=== PATIENT | female | born 1995 ===

== ENCOUNTER 2017-06-28 14:13 | Emergency (ER) | payer MEDICAID ==
[2017-06-28 14:18] VITALS: BMI 25.7
[2017-06-28 14:27] LABS: HEMATOCRIT 35.6 % (34.0-47.0); MEAN CORPUSCULAR HEMOGLOBIN 27.3 pg (27.0-31.0); MEAN CORPUSCULAR HGB CONC 32.9 g/dL (33.0-37.0); RED CELL DISTRIBUTION WIDTH 13.4 % (11.5-14.5); WHITE BLOOD COUNT 9.5 K/uL (4.8-10.8)
[2017-06-28 14:30] LABS: MEAN CELL VOLUME 83.1 fl (81.0-99.0)
[2017-06-28] MEDS ORDERED: Etomidate 20 mg/10ml Inj IV ONE (14:34)
[2017-06-28] MEDS ORDERED: Propofol 10 mg/ml 1,000 MG/100 ML VIAL ONE (14:35)
[2017-06-28 14:37] LABS: ALB/GLOB RATIO 1.1 (1.0-2.1); ALKALINE PHOSPHATASE 221 U/L (38-126); ALT/SGPT 60 U/L (9-52); AST/SGOT 46 U/L (14-36); BILIRUBIN,TOTAL 0.9 mg/dl (0.2-1.3); BLOOD UREA NITROGEN 8 mg/dl (7-17); CALCIUM 9.1 mg/dL (8.4-10.2); CARBON DIOXIDE 22 mmol/L (22-30); CHLORIDE 106 mmol/L (98-107); GFR AFRICAN-AMERICAN > 60; GLUCOSE,RANDOM 93 mg/dL (65-105); POTASSIUM 3.4 MMOL/L (3.6-5.0); SODIUM 135 mmol/l (132-148); TOTAL PROTEIN 7.2 G/DL (6.3-8.2)
--- NOTE | 2017-06-28 14:44 | CT ---
PROCEDURE: CT HEAD WITHOUT CONTRAST. HISTORY: Code stroke COMPARISON: None available. TECHNIQUE: Axial computed tomography images were obtained through the head/brain without intravenous contrast. Radiation dose: Total exam DLP = 803.5 mGy-cm. This CT exam was performed using one or more of the following dose reduction techniques: Automated exposure control, adjustment of the mA and/or kV according to patient size, and/or use of iterative reconstruction technique. FINDINGS: HEMORRHAGE: There is a small approximately 15.5 mm x 14.5 mm 15.3 mm rounded hyperdense focus on within the left parasagittal lower catherine and upper medulla most consistent with a hemorrhage. Possibility of underlying mass or vascular lesion (such as a small AVM or cavernoma) cannot be completely excluded. . This presumed hemorrhage exerts mild on mass effect and compresses the ventral surface of the 4th ventricle more so on the left side. No obstructive hydrocephalus. No other hemorrhages hemorrhages or masses are identified. . BRAIN: No obvious extra-axial masses or collections. VENTRICLES: No obstructive hydrocephalus. CALVARIUM: There are no acute calvarial fractures. PARANASAL SINUSES: Unremarkable as visualized. No significant inflammatory changes. MASTOID AIR CELLS: Unremarkable as visualized. No inflammatory changes. OTHER FINDINGS: Orbits and contents grossly unremarkable. IMPRESSION: There is a rounded hyperdense lesion within the left posterior catherine upper medulla that most likely represents a hemorrhage with surrounding mass effect and compression of the 4th ventricle. No evidence of obstructive hydrocephalus. See above discussion for additional details. These findings discussed with hospitalist Dr. Cardoso at approximately 2:34 p.m. with written down and read back verification.
--- NOTE | 2017-06-28 15:34 | PCM.RRTMUL ---
<LangstonTimmy - Last Filed: 06/28/17 16:32> LOCAL COMBINATION TRUCK DRIVER Nurse Assessment - Situation LOCAL COMBINATION TRUCK DRIVER Responder Arrival Time:: 14:10 Location:: LABOR AND DELIVERY Room Number:: 522 LOCAL COMBINATION TRUCK DRIVER Reason for Call: Possible Stroke, Change in Mental Status - IV IV Inserted during LOCAL COMBINATION TRUCK DRIVER?: Yes IV Fluids Initiated During LOCAL COMBINATION TRUCK DRIVER?: yes normal saline bolus New IV Insertion Tolerance:: Excellent - Respiratory Oxygen Delivery Method:: Mask - Diagnostic Test Ordered CT Scan:: Yes (CT HEAD W/O CONTRAST, CODE STROKE) - [place] Coma Scale Coma Scale Eye Opening:: No response Coma Scale Motor:: None Coma Scale Verbal:: No response Coma Scale Total:: 3 - Recommendations 5) LOCAL COMBINATION TRUCK DRIVER Level of Care Recommendations: EMERGENCY ROOM 6) Notifications: Consultations, Family or Designated Caregiver I.Reason for LOCAL COMBINATION TRUCK DRIVER - A) Acute Change in Patient: (Select all that apply): Acute change in mental status - B) Neurological Status (Select all that apply): Lethargic. absent: Alert, Responsive, Oriented, Verbal , Follows Commands - C) Respiratory Oxygen Delivery Method: Face Mask @% (100) - Head Head Exam: ATRAUMATIC, NORMAL INSPECTION, NORMOCEPHALIC - Eyes Eye Exam: absent: EOMI Additional Comments: fixed to right bilaterally, pupils equal - Respiratory Exam Respiratory Exam: Clear to Ausculation Bilateral, NORMAL BREATHING PATTERN - Cardiovascular Exam Cardiovascular Exam: REGULAR RHYTHM, RRR, +S1, +S2 - GI/Abdominal Exam Additional comments: GRAVID ABDOMEN - Neurological Exam Neurological Exam: absent: Alert, Awake, Oriented x3 Additional exam: unresponsive - Extremities Exam Extremities Exam: Normal Inspection Plan - B. Assessment of Findings&Treatment Plan LOCAL COMBINATION TRUCK DRIVER called due to change in mental status This is a 22 year old female with 34 weeks gestation that presented to hospital lob with due to left sided headache and visual loss. states at 10 AM after they woke up, they were on their way to the park and patient began to complain of left-sided headache and visual loss, so they brought her to nearest ED, where she was directed to L&D due to her . Patient unable to provide information as she was unresponsive at time of LOCAL COMBINATION TRUCK DRIVER. Family denies drug use, recent illness, medication use, inciting factors, trauma , or other contributing factors. ObGGyn hospitalist at bedside, monitoring within normal limits. Impression: 22 yo gravid female with signs/symptoms of CVA. Fetus stable at this time as per OBGYN. -CODE STROKE CALLED -CT HEAD W/O CONTRAST -STAT LABS -O2 VIA FACEMASK -BP, HR, O2 SAT STABLE AT THIS TIME -TRANSFER TO ED -Rushed to CT scan and then to ED <Veronica Cardoso - Last Filed: 06/28/17 16:51> Attending/Attestation - Attestation I have personally seen and examined this patient.: Yes I have fully participated in the care of the patient.: Yes I have reviewed all pertinent clinical information, including history, physical exam and plan: Yes Notes (Text): 06/28/17 16:45 22 YEAR OLD FEMALE [facility] SEEN AND EVALUATED DURING LOCAL COMBINATION TRUCK DRIVER CALLED FOR SLURRED SPEECH AND WORSENING AMS. SHE INITIALLY FELT A HEADACHE EARLY THIS MORNING, AND WHILE IN THE PARK, PATIENT DEVELOPED L EYE BLINDNESS AND WORSENING HEADACHE AND WEAKNESS. ACCOMPANIED BY AND MIL, SHE CAME TO THE [facility] AND WAS BROUGHT TO OBGYN ER. LOCAL COMBINATION TRUCK DRIVER WAS SUBSEQUENTLY CALLED. PATIENT UNABLE TO FOLLOW COMMANDS AND WAS BECOMING MORE AND MORE OBTUNDED. BP ABOUT 120/70s AND BECAME MORE HYPOTENSIVE. CODE STROKE CALLED, PT SENT FOR STAT CT HEAD. CT SHOWED BRAIN STEM BLEED, PT TRANSFERRED TO ER FOR FURTHER MANAGEMENT AND TREATMENT. IN ER, PATIENT INTUBATED, NEUROLOGY, NEUROSURGERY, OBGYN, MFM, ANESTHESIA ALL CONSULTED AND DISCUSSED. HEMORRHAGE IN WILL/MEDULLA. PT WAS SUBSEQUENTLY TRANSFERRED TO [facility].
--- NOTE | 2017-06-28 19:55 | OBHP ---
Datetime: 06/28/2017 15:25 IP Adm Impression: , intrauterine IP Chief Complaint Other: AMS EGA AdmitDate IP: 32.5 IP Chief Complaint: Other Datetime: 06/28/2017 15:14 Admit Comment, IP Provider: CC: AMS HPI: 22 YO 34wks IUP (per ) was send to [facility] from security. Pt is non-verbal, moaning. Hx is taken from and family. Per , pt had a headache this morning around 10AM and it worsened through the day. Around 13:30, headache was severe which prompted family to come to ED but o n the way pt noticed that the left side of her face had drooping and noted left sided weakness and sl urring of speech. Pt was shira to [facility], and was in security when pt became altered, dysphagic. Trans port brought pt to L_D and did not pass ER. Pt was seen in [facility], she was nonverbal and moaning. DRY WALL APPLICATOR was called, IV inserted, pt assessed by RR T team 14:10, DRY WALL APPLICATOR team took over and pt send to CT at 14:16. History later obtained from OBhx: primegrivid PMH: hypothyroid ? hx but per it resolved SurHx: denies FH: DM in mother and HTN father Allergies: NKDA Meds: PNV PE: VS: Pulse: 68, BP: 100/61, SpO2: 100 GEN: pt is not responsive to verbal stimuli, moaning in distress Cardio: S1S2 Resp: clear Abdomen: gravid, BS+ Ext: NT, no edema Sono ceph +FH; BPD measured 33w Assessment/Plan: IUP at 34w by pt's 's account; altered mental status ?seizure vs other anthony rological condition ?bleed Pt brought to [facility] and seen 14:08 DRY WALL APPLICATOR was called, DRY WALL APPLICATOR take over 14:10 PT was taken to CT 14:16 Subsequently pt taken to ER Pt is seen and discussed with Dr. Momo Vasquez, PGYI LATE ENTRY OB Hospitalist note: This pt was seen and examined by me. Agree with above note. [facility] Dr Veronica Cardoso and Harini Toth came...trransferred to CAT scan/ER Pelvic Type - PN: Not Done Extremities - PN: Abnormal Abdomen - PN: Normal Back - PN: Not Done Breast - PN: Not Done Lungs - PN: Normal Heart - PN: Normal Thyroid - PN: Not Done Neurologic - PN: Abnormal HEENT - PN: Abnormal General - PN: Abnormal Comments, ACOG Physical Exam: Late entry for exam at 14:10pm Accomplained by and relative. Pt unable to respond because she was just moaning Vital Signs Provider: Reviewed; Within Normal Limits NICHD Variability Prov Fetus A: Moderate 6-25bpm NICHD Accel Fetus A IP Provider: [id number] FHR Category Provider Fetus A: Category I NICHD Decel Fetus A IP Provider: None DTRs - PN: Not Done
--- NOTE | 2017-06-28 19:58 | OBHP ---
Datetime: 06/28/2017 15:25 Admit Comment, IP Provider: Pt was taken to CT 14:16. U/S record obtained from [facility], [facility] is 08/18/2017, [place] 32.5 wks IUP. Multiple attemps made to contact Dr. Galvan in [facility] and left messages at 14:30 and 15:00 ([phone] and [phone]). Pt was taken to ER and subsequently transfered to [place]. Management by ER and consultations with neurology, neurosurgeon and M specialists -- transferred to [facility] EGA AdmitDate IP: 32.5
[2017-06-28 21:57] VITALS: PULSE 66; RESP 17; O2SAT 100
== END 2017-06-28 14:16 | disposition short-term general hospital (02) ==
LOC: H.ER 14:13 → H.EROB2 14:13 → H.L&D 14:16 → H.ER 14:43 → H.ERHOLD 14:43 → UNDOFXERACCOM 14:44 → UNDOFXERSVC 14:44
DX: O26.93 Pregnancy related conditions, unspecified, third trimester (principal); R41.82 Altered mental status, unspecified; Z3A.34 34 weeks gestation of pregnancy

== ENCOUNTER 2017-06-28 14:47 | Emergency (ER) | payer MEDICAID ==
[2017-06-28 15:14] VITALS: TEMP 95.5; O2SAT 100
[2017-06-28 15:15] LABS: ABG ALLEN TEST YES; ABG MECHANICAL RATE 16; ARTERIAL BLOOD GAS HCO3 21.6 mmol/L (21-28); ARTERIAL BLOOD GAS MODE PRVC AC; ARTERIAL BLOOD GAS O2 CAPACITY 15.3 mL/dL (16-24); ARTERIAL BLOOD GAS O2 CONTENT 15.3 ML/dL (15-23); ARTERIAL BLOOD GAS PH 7.44 (7.35-7.45); ARTERIAL BLOOD GAS PO2 407 mm/Hg (80-100); ARTERIAL BLOOD HGB O2 SAT 96.4 % (95.0-98.0); CARBOXYHEMOGLOBIN 1.1 % (0.5-1.5); HHB -0.2 % (0.0-5.0); METHEMOGLOBIN 2.7 % (0.0-3.0)
--- NOTE | 2017-06-28 15:28 | ED PDOC ---
HPI:STROKE - Time Time: 14:35 - Historian Historian: Family () - Chief Complaint Chief Complaint: Weakness, Slurred speech, Vision loss - Onset Onset: Just prior to presenting - Notes: Notes:: Nicki Burr is a 22 y/o female, at 32 weeks gestation, brought to ED for stroke. states at 10 AM after she woke up, complaining of one- sided headache and visual loss, so they brought her to nearest ED, where she was directed to L&D due to her . At L&D they evaluated patient and called a Code Stroke. There she developed one-sided weakness, slurred speech, and became unresponsive. She was taken straight to CT and then to ED. GCS Stroke Scale: 3 PMD: Unknown rTPA Inclusion/Exclusion - Refusal of Treatment Patient Refused Treatment: No - Inclusion Criteria for Altepase Patient is 18 years or Older: Yes - Exclusion Criteria for Altepase Evidence of an Intracranial Hemorrhage: Yes Past Medical History Reviewed: Historical Data, Nursing Documentation, Vital Signs Vital Signs: Last Vital Signs Temp 95.5 F L 06/28/17 15:02 Pulse 97 H 06/28/17 15:02 Resp 14 06/28/17 15:02 BP 126/67 06/28/17 15:02 Pulse Ox 100 06/28/17 15:02 - Medical History Other PMH: Thyroid disorder - Surgical History Surgical History: No Surg Hx - Family History Family History: States: Unknown Family Hx - Social History Current smoker - smoking cessation education provided: No Alcohol: None Drugs: Denies - Allergies Allergies/Adverse Reactions: Allergies Allergy/AdvReac Type Severity Reaction Status Date / Time No Known Allergies Allergy Verified 06/28/17 15:00 Review of Systems ROS Statement: Except As Marked, All Systems Reviewed And Found Negative Neurological: Positive for: Weakness, Change in Speech (slurred), Headache (one- sided), Other (loss of vision) Physical Exam - Reviewed Nursing Documentation Reviewed: Yes Vital Signs Reviewed: Yes - Physical Exam Appears: Negative for: Well (Obtunded) Head Exam: Positive for: ATRAUMATIC, NORMOCEPHALIC Skin: Positive for: Normal Color, Warm, Dry Eye Exam: Positive for: Other (Eyes fixed to the right bilaterally. Pupils equal ) Neck: Positive for: Normal, Painless ROM, Supple Cardiovascular/Chest: Positive for: Regular Rate, Rhythm. Negative for: Murmur Respiratory: Positive for: Normal Breath Sounds (bilateral breathe sounds) Gastrointestinal/Abdominal: Positive for: Normal Exam, Soft. Negative for: Tenderness Back: Positive for: Normal Inspection Extremity: Positive for: Normal ROM, Capillary Refill (< 2 sec). Negative for: Deformity Neurologic/Psych: Positive for: Other (Minimal gag reflex. Unresponsive, not moving any extremities.) - Laboratory Results Result Diagrams: 06/28/17 15:25 06/28/17 15:25 - ECG O2 Sat by Pulse Oximetry: 100 - Critical Care Total Time (In Min): 60 Medical Decision Making Medical Decision Making: Time: 14:42 CT Head (Code Stroke): FINDINGS: HEMORRHAGE: There is a small approximately 15.5 mm x 14.5 mm 15.3 mm rounded hyperdense focus on within the left parasagittal lower catherine and upper medulla most consistent with a hemorrhage. Possibility of underlying mass or vascular lesion (such as a small AVM or cavernoma) cannot be completely excluded. . This presumed hemorrhage exerts mild on mass effect and compresses the ventral surface of the 4th ventricle more so on the left side. No obstructive hydrocephalus. No other hemorrhages hemorrhages or masses are identified. . BRAIN: No obvious extra-axial masses or collections. VENTRICLES: No obstructive hydrocephalus. CALVARIUM: There are no acute calvarial fractures. PARANASAL SINUSES: Unremarkable as visualized. No significant inflammatory changes. MASTOID AIR CELLS: Unremarkable as visualized. No inflammatory changes. OTHER FINDINGS: Orbits and contents grossly unremarkable. IMPRESSION: There is a rounded hyperdense lesion within the left posterior catherine upper medulla that most likely represents a hemorrhage with surrounding mass effect and compression of the 4th ventricle. No evidence of obstructive hydrocephalus. See above discussion for additional details. These findings discussed with hospitalist Dr. Cardoso at approximately 14:34 p.m. with written down and read back verification. Time: 14:35 --Anesthesia, custom bow maker, OB (Dr. Barr) and hospitalist (Dr. Veronica Cardoso) at bedside Time: 14:40 --Dr. Cardoso spoke to Neurologist, Dr. Mckeon, who stated patient is very high risk , and recommended to speak with Neurosurgery regarding possibility of intervention Time: 14:55 --Consulted with Neurosurgery on-call, Dr. Box, who recommended supportive care Time: 14:36 --Dr. Cardoso spoke to Dr. Aviles, who sated based on Neurosurgery intervention, if immediate intervention necessary, recommended transferring patient with baby in-utero for concomitant procedure and Time: 14:56 Initial Impression: CVA Initial Plan: --CMP --CBC --PTT --Prothrombin time --Troponin I --Blood type and screen stat --ABG --POC blood glucose --CXR --EKG --Paged Neurology and Neurosurgery consults Time: 15:00 -- Dr. Yung spoke to Neuro-broach trouble shooter, Dr. Russell, who will discuss with [facility] for transfer Time: 15:00 --Dr. Cardoso spoke again with Dr. Mckeon, noted to monitor sodium and maintain at 140, if sodium less than 135 do bolus with 100 or 250cc's of 3% normal saline Time: 15:17 --Dr. Cardoso spoke with Dr. Aviles, notified of transfer to [facility]. Patient requires continuous monitoring while intubated. Time: 15:43 --I spoke to Dr. Makayla Richardson at [facility], notified of ER to ER transfer Time: 15:45 --NS IV 1000 ml at 1000 mls/hr --Lactated Ringers 1000 ml IV --Propofol 10 mg/ml 1,000mg in 100 ml IV --Propofol 10mg/ml 40 mg IV --Ventilator settings: rate at 12, tidal volume at 450, FiO2 at 100 Time: 16:06 --Chest X-Ray reviewed by me, shows ETT in good position Scribe Attestation: Documented by Tessa Paulson, acting as a scribe for Eugenia Diana MD Provider Scribe Attestation: All medical record entries made by the Scribe were at my direction and personally dictated by me. I have reviewed the chart and agree that the record accurately reflects my personal performance of the history, physical exam, medical decision making, and the department course for this patient. I have also personally directed, reviewed, and agree with the discharge instructions and disposition. 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
[2017-06-28 15:36] LABS: BASO % 0.3 % (0.0-2.0); EOS % 0.3 % (0.0-4.0); HEMATOCRIT 26.5 % (34.0-47.0); LYMPH # 1.3 K/uL (1.0-4.3); LYMPH % 15.6 % (20.0-40.0); MEAN CELL VOLUME 83.2 fl (81.0-99.0); MEAN CORPUSCULAR HEMOGLOBIN 27.1 pg (27.0-31.0); MEAN CORPUSCULAR HGB CONC 32.6 g/dL (33.0-37.0); MEAN PLATELET VOLUME 9.2 fl (7.2-11.7); MONO # 0.6 K/uL (0.0-0.8); MONO % 7.2 % (0.0-10.0); NEUT # 6.5 K/uL (1.8-7.0); NEUT % 76.6 % (50.0-75.0); RED CELL DISTRIBUTION WIDTH 13.5 % (11.5-14.5); WHITE BLOOD COUNT 8.4 K/uL (4.8-10.8)
[2017-06-28 15:42] LABS: ALB/GLOB RATIO 0.9 (1.0-2.1); ALKALINE PHOSPHATASE 145 U/L (38-126); ALT/SGPT 52 U/L (9-52); AST/SGOT 33 U/L (14-36); BILIRUBIN,TOTAL 0.6 mg/dl (0.2-1.3); BLOOD UREA NITROGEN 6 mg/dl (7-17); CALCIUM 7.7 mg/dL (8.4-10.2); CARBON DIOXIDE 15 mmol/L (22-30); CHLORIDE 107 mmol/L (98-107); GFR AFRICAN-AMERICAN > 60; GLUCOSE,RANDOM 80 mg/dL (65-105); POTASSIUM 3.4 MMOL/L (3.6-5.0); SODIUM 133 mmol/l (132-148); TOTAL PROTEIN 4.7 G/DL (6.3-8.2)
[2017-06-28] MEDS ORDERED: Propofol 10 mg/ml Inj (20 ML) IV STA ×3 (15:45→15:47)
[2017-06-28] MEDS ORDERED: Sodium Chloride 0.9% 1,000 ML IV STA (15:48)
[2017-06-28 15:52] LABS: PARTIAL THROMBOPLASTIN TIME 28.8 Seconds (25.6-37.1)
[2017-06-28] MEDS ORDERED: Lactated Ringer's 1,000 ML IV SCH (16:00)
[2017-06-28] MEDS ORDERED: Propofol 10 mg/ml 1,000 MG/100 ML VIAL IV SCH (16:00)
--- NOTE | 2017-06-28 16:14 | RAD ---
HISTORY: CVA COMPARISON: No prior. FINDINGS: LUNGS: In situ ETT, tip of which lies approximately 2.74 cm above chintan. NGT is present, the tip of which has not been included on this film though distal aspect does lie well below EG junction. Low lung volumes with crowded bronchovascular markings and mild bibasilar atelectasis. Developing lower lobe infiltrates could be excluded followup radiographs. Central pulmonary vasculature also appears slightly congested; rule out developing pulmonary edema PLEURA: No significant pleural effusion identified, no pneumothorax apparent. CARDIOVASCULAR: Normal. OSSEOUS STRUCTURES: No significant abnormalities. VISUALIZED UPPER ABDOMEN: Normal. OTHER FINDINGS: None. IMPRESSION: ETT and NGT as above. Low lung volumes with crowded bronchovascular markings and bibasilar atelectasis. Developing lower lobe infiltrates could be excluded followup radiographs. Central pulmonary vasculature also appears slightly congested; rule out developing pulmonary edema
[2017-06-28 16:53] VITALS: BP 117/77; PULSE 96; RESP 16
--- NOTE | 2017-06-29 10:15 | CARD ---
APPROVED REPORT EKG Measurement Heart [id number] <Conclusion> Normal sinus rhythm Possible Left atrial enlargement Low voltage QRS Nonspecific ST abnormality Abnormal ECG
== END 2017-06-28 17:12 | disposition short-term general hospital (02) ==
LOC: H.ER 14:47
DX: I61.3 Nontraumatic intracerebral hemorrhage in brain stem (principal); O26.93 Pregnancy related conditions, unspecified, third trimester; Z3A.34 34 weeks gestation of pregnancy; E07.9 Disorder of thyroid, unspecified